=== PATIENT | male | born 1985 | race Caucasian/White ===

== ENCOUNTER → 2021-02-16 | Outpatient (CLI) | payer BC ==
[~2021-02-16] MED LIST: METOPROLOL TART75 MG PO; NIACIN PO; OZEMPIC1 MG/0.71 SQ
[2021-02-16 17:12] VITALS: BP 155/101
[2021-02-16 17:45] LABS: HEMATOCRIT 46.4 % (42.0-52.0); RED BLOOD COUNT 5.75 M/mm3 (4.20-5.60); RED CELL DISTRIBUTION WIDTH 13.3 % (11.5-14.5); WHITE BLOOD COUNT 3.8 K/mm3 (4.8-10.8)
[2021-02-16 17:50] LABS: ALBUMIN 3.9 g/dL (3.5-5.0); POTASSIUM 3.5 mmol/L (3.5-5.1)
[2021-02-16 17:52] LABS: CALCIUM 8.9 mg/dL (8.3-10.5)
[2021-02-16 17:53] LABS: TOTAL PROTEIN 7.3 g/dL (6.4-8.3)
[2021-02-16 17:55] LABS: TOTAL BILIRUBIN 0.6 mg/dL (0.2-1.2)
[2021-02-16 18:38] VITALS: BP 161/100
[2021-02-16 19:10] LABS: URINE APPEARANCE HAZY; URINE COLOR YELLOW; URINE PROTEIN(semi-quant) TRACE mg/dL (NEGATIVE)
[2021-02-16 19:11] LABS: URINE BILIRUBIN 1+ (NEGATIVE); URINE BLOOD NEGATIVE (NEGATIVE); URINE GLUCOSE NEGATIVE (NEGATIVE); URINE KETONE 2+ (NEGATIVE); URINE LEUKOCYTE ESTERASE NEGATIVE (NEGATIVE); URINE NITRATE NEGATIVE (NEGATIVE); URINE UROBILINOGEN NORMAL (NORMAL); URINE WBC 0-1 /hpf (0-3)
[2021-02-16 20:20] VITALS: BP 135/89
[2021-02-16 22:20] VITALS: BP 145/91
== END ==
LOC: AMSURD 16:48
PROVIDERS: Nurse Practitioner Family
DX: E86.0 Dehydration (principal); Z86.16 Personal history of COVID-19
CPT/HCPCS: J7030